=== PATIENT | male | born 1960 | race African-American/Black ===

== ENCOUNTER 2018-07-21 01:12 | Emergency (ER) | payer MEDICARE, MEDICAID | END 2018-07-21 04:23 | disposition home or self-care (01) | LOC: FTE 01:12 | DX: Z76.0 Encounter for issue of repeat prescription (principal) | CPT/HCPCS: 99281 ==

== ENCOUNTER 2018-08-05 13:28 | Emergency (ER) | payer MEDICARE, MEDICAID | END 2018-08-05 14:48 | disposition home or self-care (01) | LOC: FTE 14:48 | DX: L84 Corns and callosities (principal) | CPT/HCPCS: 99282 ==